=== PATIENT | female | born 1965 | race Caucasian/White ===

== ENCOUNTER 2018-08-14 12:38 | Inpatient (IN) | payer BC, OTHER ==
--- NOTE | 2018-08-14 15:39 | HP ---
Screened but not Admitted - Documentation of Visit Screened but not Admitted: Yes Left Prior to Completion of Assessment: No Insurance Authorization Denied: No Patient Does Not Meet Criteria for Admission: No Level of Care Recommended at this Time: ER Evaluation/Care Alternative Treatment/Nursing Home Info Provided: No Additional Information/Explanation: Pt presents for alcohol detox. VS shows HR to be 122 initially and 132bpm when re-checked hours after. Pt reports "feeling my heart beating real fast, denies chest pains". FS - 39, Bp 154/86. Pt will be sent to ED to r/o cardiac involvement. Report given to Dr Maciel at the ED [facility]. Pt will be sent back when medically cleared for re- admission.
--- NOTE | 2018-08-14 22:46 | HP ---
Admission [facility] Allergies/Adverse Reactions: Allergies Allergy/AdvReac Type Severity Reaction Status Date / Time No Known Allergies Allergy Verified 08/14/18 16:28 - Ebola screening Have you traveled outside of the country in the last 21 days: No (N) Have you had contact with anyone from an Ebola affected area: No Do you have a fever: No
[2018-08-14 22:49] VITALS: BMI 19.5
--- NOTE | 2018-08-14 22:56 | HP ---
CIWA Score - CIWA Score Nausea/Vomitin-Mild Nausea/No Vomiting Muscle Tremors: 7-Severe,w/o Arm Extended Anxiety: 4-Mod. Anxious/Guarded Agitation: 4-Moderately Restless Paroxysmal Sweats: No Perspiration Orientation: 0-Oriented Tacttile Disturbances: 0-None Auditory Disturbances: 0-None Visual Disturbances: 0-None Headache: 2-Mild CIWA-Ar Total Score: 18 Admission [facility] - HPI Chief Complaint: Here for aalcohol withdrawal. Allergies/Adverse Reactions: Allergies Allergy/AdvReac Type Severity Reaction Status Date / Time No Known Allergies Allergy Verified 08/14/18 16:28 History of Present Illness: Patient seen earlier in [facility] and sent to ER for a HR: 132 and Bld Gluc: 309 and now returns from [facility] ER after being evaluated. Emergency Provider: Mahsa De Leon Date: 08/14/18 19:52 Initialization Date: 08/14/18 19:52 Attending Attestation HPI HPI: 08/14/18 19:52 53 yo F h/o DM, etoh abuse, here with c/o etoh withdrawal, her last drink was today. drinks daily vodka, has tried to stop in the past usually has withdrawal symptoms. mike h/o DT or seizure. no f/c. no n/v. no other complaints. was seen at [facility] for detox, found to be tachycardic, in 130's, and sugar in 300, sent of medical clearance. denies other drug use. - Physicial Exam PE: 08/14/18 19:57 awake alert lungs clear bilaterally heart tachycardic, regular no m/rg abd soft nt nd. ext wwp. nuero alert oriented x 3. resting tremors, skin warm and dry. Medical Decision Making 08/14/18 19:58 differential dehydration, dka, etoh withdrawal, anemia, electrolyte abnormality. plan labs ekg hydration labs will treat etoh withdrawal with benzos. pt labs unremarkable. sugar 260, improved vs with fluids and ativan. d/w [facility], pt cleared to go to [facility] for detox. End of Attending Attestation Alcohol use disorder since age 14. Nicotine l use disorder since age 28. Hx Blackouts. State blackouts are often r/t diabetes but had an alcohol related blackout 2 weeks ago.. Denies hx seizures. PMH: HTN, IDDM. elevated LFT's. PSH: Gastric Sleeve Exam Limitations: No Limitations - Ebola screening Have you traveled outside of the country in the last 21 days: No (N) Have you had contact with anyone from an Ebola affected area: No Have you been sick,other than usual withdrawal symptoms: No Do you have a fever: No - Review of Systems Constitutional: Changes in sleep (Difficulty sleeping when not drinking) EENT: reports: Cataracts ([place] cataracts), Blurred Vision (Wears.), Other Respiratory: reports: Cough (Cough x months. Coughing up whitish phlegm) Cardiac: reports: Other (Tachycardia) GI: reports: Nausea, Indigestion (Acid reflus - protonix), Other (Hx; Gastric sleeve) : reports: No Symptoms Reported Musculoskeletal: reports: No Symptoms Reported Integumentary: reports: No Symptoms Reported, Lesions (Slight scratches r/t gardening) Neuro: reports: Headache (May be r/t seasonal allergies), Tremors (of whole body r/t withdrawal), Unsteady Gait (r/t tremors) Endocrine: reports: No Symptoms Reported Hematology: reports: No Symptoms Reported Psychiatric: reports: Judgement Intact, Orientated x3, Agitated, Anxious, Depressed (On antidepressants. Denies thoughts of harming self or others.) Patient History - Patient Medical History Hx Gastrointestinal Disorders: Yes (Hx Pancreatitis, GERD) Hx Liver Disease: Yes (Elevated Liver enzymes) Hx Sexually Transmitted Disorders: No Hx Depression: Yes (Denies thoughts of harming self or others) - PPD History Previous Implant?: Yes Documented Results: Negative w/o proof Implanted On Prior R Admission?: No PPD to be Administered?: Yes - Smoking Cessation Smoking history: Current every day smoker Have you smoked in the past 12 months: Yes Aproximately how many cigarettes per day: 40 Hx Chewing Tobacco Use: No Initiated information on smoking cessation: Yes 'Breaking Loose' booklet given: 08/14/18 - Substance & Tx. History Hx Alcohol Use: Yes Hx Substance Use: No Substance Use Type: Alcohol Hx Substance Use Treatment: No - Substances Abused Alcohol Route: Oral Frequency: Daily Amount used: 1-2 pints Age of first use: 14 Date of Last Use: 08/13/18 Admission Physical Exam BHS - Vital Signs Vital Signs: Vital Signs - 24 hr 08/14/18 22:47 Temperature 98.6 F Pulse Rate 107 H Respiratory 18 Rate Blood Pressure 144/86 - Physical General Appearance: Yes: Mild Distress, Moderate Distress, Tremorous, Anxious HEENTM: Yes: EOMI, Hearing grossly Normal, Normal Voice, CONOR Respiratory: Yes: Lungs Clear, Normal Breath Sounds, Other (Noisy, non- productive cough) Neck: Yes: No masses,lesions,Nodules, Supple Breast: Yes: Breast Exam Deferred Cardiology: Yes: Regular Rhythm, S1, S2, Tachycardia Abdominal: Yes: Normal Bowel Sounds, Non Tender, Soft Genitourinary: Yes: Within Normal Limits Back: Yes: Normal Inspection Musculoskeletal: Yes: full range of Motion, Other (Gait unsteady) Extremities: Yes: Normal Capillary Refill, Normal Range of Motion, Tremors ( tremors of arms and legs) Neurological: Yes: maintenance repairman II-XII NML intact, Fully Oriented, Alert, Motor Strength 5/5, Normal Mood/Affect Integumentary: Yes: Normal Color, Dry (poor turgor), Warm Lymphatic: Yes: Within Normal Limits - Diagnostic (1) Diabetes Current Visit: Yes Status: Acute Qualifiers: Diabetes mellitus type: type 2 Diabetes mellitus halfway insulin use: unspecified halfway insulin use status Diabetes mellitus complication status : with hyperglycemia Qualified Code(s): E11.65 - Type 2 diabetes mellitus with hyperglycemia (2) Alcohol withdrawal Current Visit: Yes Status: Acute Qualifiers: Complication of substance-induced condition: with unspecified complication Qualified Code(s): F10.239 - Alcohol dependence with withdrawal, unspecified (3) Tachycardia Current Visit: Yes Status: Acute (4) Dehydration Current Visit: Yes Status: Acute (5) Bariatric surgery status Current Visit: No Status: Chronic Cleared for Admission [facility] - Detox or Rehab [facility] Level of Care: Medically Managed Detox Regimen/Protocol: Valium S Breath Alcohol Content Breath Alcohol Content: 0 Urine Pregancy Test - Result Urine Test Results: Negative- NO Line Present Urine Drug Screen - Results Drug Screen Negative: Yes
[2018-08-14] MEDS ORDERED: NICOTINE POLACRILEX 4 MG GUM BUC PRN (23:20)
[2018-08-14] MEDS ORDERED: LOPERAMIDE HCL 2 MG CAPSULE PO PRN (23:20)
[2018-08-14] MEDS ORDERED: MENTHOL/PHENOL 1 EACH UD MM PRN (23:20)
[2018-08-14] MEDS ORDERED: MAGNESIUM HYDROX 2400MG/30ML ORAL SUSPENSION 30 ML CUP PO PRN (23:20)
[2018-08-14] MEDS ORDERED: IBUPROFEN 400 MG TABLET (FP) PO PRN (23:20)
[2018-08-14] MEDS ORDERED: MAG HYDROX/AL HYDROX/SIMETH 30 ML UNIT-DOSE CUP PO PRN (23:20)
[2018-08-14] MEDS ORDERED: MAGNESIUM CITRATE 300 ML BOTTLE PO PRN (23:20)
[2018-08-14] MEDS ORDERED: diazePAM 5 MG TABLET PO ONE (23:20)
[2018-08-14] MEDS ORDERED: ACETAMINOPHEN 325 MG TABLET (FP) PO PRN (23:20)
[2018-08-14] MEDS ORDERED: hydrOXYzine PAMOATE 25 MG CAPSULE (FP) PO PRN (23:20)
[2018-08-14] MEDS ORDERED: P-EPHED 60MG/TRIPROLIDI 2.5MG TABLET PO PRN (23:20)
[2018-08-14] MEDS ORDERED: guaiFENesin 200 MG/10 ML 10 ML UNIT-DOSE CUPS PO PRN (23:24)
[2018-08-15] MEDS: diazePAM 5 MG TABLET PO SCH ×6 (00:54→22:58)
[2018-08-15] MEDS: GLIMEPIRIDE 4 MG TABLET (FP) PO SCH (07:52)
--- NOTE | 2018-08-15 09:31 | CONSULT ---
[facility] Psychiatric Consult - Data Date of interview: 08/15/18 Admission source: Mother Identifying data: Ms Layton is a 53 years old female, employed as scrum project manager of [employer], domiciled seeking detox treatment for alcohol Substance Abuse History: Reports history of alcohol use. Refer to addiction counselor's summary for further information Medical History: Significant for hypertension, type 2 diabetes mellitus,GERD, increase LFT"S and history of panceatitis and surgery for gastric sleeve. Smokes cigarettes 2 ppd Psychiatric History: Reports that she started taking Lexapro 10 mg po daily last month prescribed by her primary care physician for depression. Reports that she expressed feeling lonely to her physician. Denies history of psychiatric hospitalization or suicidal attempt. At present, reports feeling well but sleeping poorly Physical/Sexual Abuse/Trauma History: Denies history of emotional, physical or sexual abuse as well as DV relationship. No service Additional Comment: Denies criminal history Mental Status Exam - Mental Status Exam Alert and Oriented to: Time, Place, Person Cognitive Function: Fair Patient Appearance: Well Groomed Mood: Hopeful, Euthymic Affect: Appropriate Patient Behavior: Cooperative Speech Pattern: Clear Voice Loudness: Normal Thought Process: Intact, Goal Oriented Thought Disorder: Not Present Hallucinations: Denies Suicidal Ideation: Denies Homicidal Ideation: Denies Insight/Judgement: Fair Sleep: Poorly Appetite: Fair Muscle strength/Tone: Normal Gait/Station: Normal Psychiatric Findings - Problem List ([place] 1, 2,3) (1) Alcohol-induced mood disorder Current Visit: Yes Status: Acute (2) Alcohol-induced sleep disorder Current Visit: Yes Status: Acute (3) Alcohol dependence with uncomplicated withdrawal Current Visit: Yes Status: Acute (4) Nicotine dependence Current Visit: Yes Status: Chronic (5) HTN (hypertension) Current Visit: Yes Status: Chronic (6) Type 2 diabetes mellitus Current Visit: Yes Status: Chronic (7) Pancreatitis, chronic Current Visit: Yes Status: Chronic (8) GERD (gastroesophageal reflux disease) Current Visit: Yes Status: Chronic - Initial Treatment Plan Initial Treatment Plan: 1) Continue Lexapro 10 mg po daily. 2) Start Melatonin 5 mg po HS prn for insomnia. 3) Continue inpatient detoxification
[2018-08-15] MEDS ORDERED: [UNRECOGNIZED DRUG - OTHER] PO SCH (10:00)
[2018-08-15] MEDS ORDERED: SAXAGLIPTIN HCL PO SCH (10:00)
[2018-08-15] MEDS ORDERED: METFORMIN HCL PO SCH (10:00)
[2018-08-15] MEDS: INSULIN DEGLUDEC SQ SCH (10:00)
[2018-08-15 10:39] LABS: HEMATOCRIT 34.3 % (32.4-45.2); HEMOGLOBIN 11.2 GM/dL (10.7-15.3); MCH 34.2 pg (25.7-33.7); MCHC 32.6 g/dl (32.0-36.0); MEAN CELL VOLUME 104.9 fl (80-96); PLATELET COUNT 43 K/MM3 (134-434); RBC 3.27 M/mm3 (3.60-5.2); RDW 18.2 % (11.6-15.6); WHITE BLOOD COUNT 4.2 K/mm3 (4.0-10.0)
[2018-08-15] MEDS: PRENATAL VITAMINS W/ FOLIC ACID TABLET (FP) PO SCH (10:42)
[2018-08-15] MEDS: PANTOPRAZOLE 40 MG TABLET (FP) PO SCH (10:43)
[2018-08-15] MEDS: FOLIC ACID 1 MG TABLET (FP) PO SCH (10:43)
[2018-08-15] MEDS: diazePAM 5 MG TABLET PO PRN ×3 (10:44→22:55)
[2018-08-15] MEDS: NICOTINE 21 MG/24 HOURS TOPICAL PATCH TD SCH (10:44)
[2018-08-15 11:37] LABS: ALK PHOS 160 U/L (45-117); ANION GAP 8 MMOL/L (8-16); BILIRUBIN,TOTAL 0.7 mg/dL (0.2-1); BLOOD UREA NITROGEN 7 mg/dL (7-18); CALCIUM 8.6 mg/dL (8.5-10.1); CHLORIDE 98 mmol/L (98-107); CO2 31 mmol/L (21-32); CREATININE 0.6 mg/dL (0.55-1.3); GLUCOSE,RANDOM 66 mg/dL (74-106); POTASSIUM 3.5 mmol/L (3.5-5.1); SGOT/AST 87 U/L (15-37); SGPT/ALT 58 U/L (13-61); SODIUM 138 mmol/L (136-145)
--- NOTE | 2018-08-15 16:30 | PN ---
[facility] CIWA - CIWA Score Nausea/Vomitin-Mild Nausea/No Vomiting Muscle Tremors: 4-Moderate,w/Arms Extend Anxiety: 4-Mod. Anxious/Guarded Agitation: 4-Moderately Restless Paroxysmal Sweats: 1-Minimal Palms Moist Orientation: 0-Oriented Tacttile Disturbances: 1-Very Mild Itch/Numbness Auditory Disturbances: 0-None Visual Disturbances: 0-None Headache: 1-Very Mild CIWA-Ar Total Score: 16 BHS Progress Note (SOAP) Subjective: sweat tremor restlessness anxiety Objective: 08/15/18 16:29 Vital Signs Temperature 98.1 F 08/15/18 15:34 Pulse Rate 106 H 08/15/18 15:34 Respiratory Rate 18 08/15/18 15:34 Blood Pressure 138/93 08/15/18 15:34 O2 Sat by Pulse Oximetry (%) Laboratory Last Values WBC 4.2 K/mm3 (4.0-10.0) 08/15/18 07:40 RBC 3.27 M/mm3 (3.60-5.2) L 08/15/18 07:40 Hgb 11.2 GM/dL (10.7-15.3) 08/15/18 07:40 Hct 34.3 % (32.4-45.2) 08/15/18 07:40 MCV 104.9 fl (80-96) H 08/15/18 07:40 MCH 34.2 pg (25.7-33.7) H 08/15/18 07:40 MCHC 32.6 g/dl (32.0-36.0) 08/15/18 07:40 RDW 18.2 % (11.6-15.6) H 08/15/18 07:40 Plt Count 43 K/MM3 (134-434) L D 08/15/18 07:40 MPV 8.0 fl (7.5-11.1) 08/15/18 07:40 Sodium 138 mmol/L (136-145) 08/15/18 07:40 Potassium 3.5 mmol/L (3.5-5.1) 08/15/18 07:40 Chloride 98 mmol/L (98-107) 08/15/18 07:40 Carbon Dioxide 31 mmol/L (21-32) 08/15/18 07:40 Anion Gap 8 MMOL/L (8-16) 08/15/18 07:40 BUN 7 mg/dL (7-18) 08/15/18 07:40 Creatinine 0.6 mg/dL (0.55-1.3) 08/15/18 07:40 Creat Clearance w eGFR > 60 (>60) 08/15/18 07:40 POC Glucometer 104 UNITS (80-120) 08/15/18 05:47 Random Glucose 66 mg/dL (74-106) L 08/15/18 07:40 Calcium 8.6 mg/dL (8.5-10.1) 08/15/18 07:40 Total Bilirubin 0.7 mg/dL (0.2-1) 08/15/18 07:40 AST 87 U/L (15-37) H 08/15/18 07:40 ALT 58 U/L (13-61) 08/15/18 07:40 Alkaline Phosphatase 160 U/L (45-117) H 08/15/18 07:40 Total Protein 7.0 g/dl (6.4-8.2) 08/15/18 07:40 Albumin 3.0 g/dl (3.4-5.0) L 08/15/18 07:40 RPR Titer Nonreactive (NONREACTIVE) 08/15/18 07:40 lab noted Assessment: 08/15/18 16:29 withdrawal sx Plan: continue detox
[2018-08-15] MEDS: ESCITALOPRAM OXALATE 10 MG TABLET (FP) PO SCH (17:25)
[2018-08-15] MEDS: THIAMINE HCL 100 MG TABLET (FP) PO SCH (22:55)
[2018-08-16] MEDS: diazePAM 5 MG TABLET PO PRN (05:34)
[2018-08-16] MEDS: GLIMEPIRIDE 4 MG TABLET (FP) PO SCH (09:10)
[2018-08-16] MEDS: FOLIC ACID 1 MG TABLET (FP) PO SCH (10:38)
[2018-08-16] MEDS: PANTOPRAZOLE 40 MG TABLET (FP) PO SCH (10:38)
[2018-08-16] MEDS: PRENATAL VITAMINS W/ FOLIC ACID TABLET (FP) PO SCH (10:38)
[2018-08-16] MEDS: ESCITALOPRAM OXALATE 10 MG TABLET (FP) PO SCH (10:38)
[2018-08-16] MEDS: NICOTINE 21 MG/24 HOURS TOPICAL PATCH TD SCH (10:38)
[2018-08-16] MEDS: INSULIN DEGLUDEC SQ SCH (11:00)
[2018-08-16 11:39] LABS: URINE APPEARANCE CLEAR; URINE BILIRUBIN NEGATIVE (<2.0 mg/dL); URINE COLOR LTYELLOW; URINE GLUCOSE (UA) 3+ (NEGATIVE); URINE KETONE TRACE (NEGATIVE); URINE LEUK ESTERASE NEGATIVE (NEGATIVE); URINE NITRITE NEGATIVE (NEGATIVE); URINE PROTEIN 2+ (NEGATIVE); URINE UROBILINOGEN NEGATIVE mg/dL (0.2-1.0)
[2018-08-16 11:41] LABS: EPI CELLS RARE /HPF (FEW); YEAST FEW
--- NOTE | 2018-08-16 12:35 | PN ---
[facility] CIWA - CIWA Score Nausea/Vomitin-No Nausea/No Vomiting Muscle Tremors: 3 Anxiety: 3 Agitation: 2 Paroxysmal Sweats: 1-Minimal Palms Moist Orientation: 0-Oriented Tacttile Disturbances: 1-Very Mild Itch/Numbness Auditory Disturbances: 0-None Visual Disturbances: 0-None Headache: 1-Very Mild CIWA-Ar Total Score: 11 S Progress Note (SOAP) Subjective: sweat tremor restlessness anxiety trouble sleep at night Objective: 08/16/18 12:44 Vital Signs Temperature 98.1 F 08/16/18 09:15 Pulse Rate 116 H 08/16/18 09:15 Respiratory Rate 16 08/16/18 09:15 Blood Pressure 142/89 08/16/18 09:15 O2 Sat by Pulse Oximetry (%) Laboratory Last Values WBC 4.2 K/mm3 (4.0-10.0) 08/15/18 07:40 RBC 3.27 M/mm3 (3.60-5.2) L 08/15/18 07:40 Hgb 11.2 GM/dL (10.7-15.3) 08/15/18 07:40 Hct 34.3 % (32.4-45.2) 08/15/18 07:40 MCV 104.9 fl (80-96) H 08/15/18 07:40 MCH 34.2 pg (25.7-33.7) H 08/15/18 07:40 MCHC 32.6 g/dl (32.0-36.0) 08/15/18 07:40 RDW 18.2 % (11.6-15.6) H 08/15/18 07:40 Plt Count 43 K/MM3 (134-434) L D 08/15/18 07:40 MPV 8.0 fl (7.5-11.1) 08/15/18 07:40 Sodium 138 mmol/L (136-145) 08/15/18 07:40 Potassium 3.5 mmol/L (3.5-5.1) 08/15/18 07:40 Chloride 98 mmol/L (98-107) 08/15/18 07:40 Carbon Dioxide 31 mmol/L (21-32) 08/15/18 07:40 Anion Gap 8 MMOL/L (8-16) 08/15/18 07:40 BUN 7 mg/dL (7-18) 08/15/18 07:40 Creatinine 0.6 mg/dL (0.55-1.3) 08/15/18 07:40 Creat Clearance w eGFR > 60 (>60) 08/15/18 07:40 POC Glucometer 385 UNITS (80-120) 08/16/18 05:30 Random Glucose 66 mg/dL (74-106) L 08/15/18 07:40 Calcium 8.6 mg/dL (8.5-10.1) 08/15/18 07:40 Total Bilirubin 0.7 mg/dL (0.2-1) 08/15/18 07:40 AST 87 U/L (15-37) H 08/15/18 07:40 ALT 58 U/L (13-61) 08/15/18 07:40 Alkaline Phosphatase 160 U/L (45-117) H 08/15/18 07:40 Total Protein 7.0 g/dl (6.4-8.2) 08/15/18 07:40 Albumin 3.0 g/dl (3.4-5.0) L 08/15/18 07:40 Urine Color Ltyellow 08/16/18 07:30 Urine Appearance Clear 08/16/18 07:30 Urine pH 7.0 (5.0-8.0) 08/16/18 07:30 Ur Specific [place] 1.018 (1.010-1.035) 08/16/18 07:30 Urine Protein 2+ (NEGATIVE) H 08/16/18 07:30 Urine Glucose (UA) 3+ (NEGATIVE) H 08/16/18 07:30 Urine Ketones Trace (NEGATIVE) H 08/16/18 07:30 Urine Blood 1+ (NEGATIVE) H 08/16/18 07:30 Urine Nitrite Negative (NEGATIVE) 08/16/18 07:30 Urine Bilirubin Negative (<2.0 mg/dL) 08/16/18 07:30 Urine Urobilinogen Negative mg/dL (0.2-1.0) 08/16/18 07:30 Ur Leukocyte Esterase Negative (NEGATIVE) 08/16/18 07:30 Urine WBC (Auto) 5 /hpf (3-5) 08/16/18 07:30 Urine RBC (Auto) 5 /hpf (0-3) 08/16/18 07:30 Ur Epithelial Cells Rare /HPF (FEW) 08/16/18 07:30 Urine Yeast Few 08/16/18 07:30 RPR Titer Nonreactive (NONREACTIVE) 08/15/18 07:40 lab noted Assessment: 08/16/18 12:45 withdrawal sx Plan: continue detox
[2018-08-16] MEDS: MELATONIN 5 MG TABLETS PO PRN (22:13)
[2018-08-16] MEDS: THIAMINE HCL 100 MG TABLET (FP) PO SCH (22:13)
[2018-08-16] MEDS: diazePAM 5 MG TABLET PO SCH (22:13)
[2018-08-17] MEDS: GLIMEPIRIDE 4 MG TABLET (FP) PO SCH (07:36)
[2018-08-17] MEDS: sitaGLIPtin PHOSPHATE 100 MG TABLET (FP) PO SCH (08:00)
[2018-08-17] MEDS ORDERED: PATIENT'S OWN MEDICATION (NON-FORMULARY) (Insulin Degludec [Tresiba Flextouch U-100] 100 U SQ ONE (09:15)
[2018-08-17] MEDS ORDERED: INSULIN DEGLUDEC SQ ONE (09:15)
[2018-08-17] MEDS: PANTOPRAZOLE 40 MG TABLET (FP) PO SCH (09:59)
[2018-08-17] MEDS: PRENATAL VITAMINS W/ FOLIC ACID TABLET (FP) PO SCH (09:59)
[2018-08-17] MEDS: FOLIC ACID 1 MG TABLET (FP) PO SCH (09:59)
[2018-08-17] MEDS: ESCITALOPRAM OXALATE 10 MG TABLET (FP) PO SCH (10:00)
[2018-08-17] MEDS: NICOTINE 21 MG/24 HOURS TOPICAL PATCH TD SCH (10:00)
[2018-08-17] MEDS: diazePAM 5 MG TABLET PO SCH ×2 (10:01→22:11)
--- NOTE | 2018-08-17 10:43 | PN ---
[facility] Progress Note (SOAP) Subjective: feeling better no tremor less sweat sleep better at night Objective: 08/17/18 10:42 Vital Signs Temperature 97.9 F 08/17/18 09:33 Pulse Rate 96 H 08/17/18 09:33 Respiratory Rate 18 08/17/18 09:33 Blood Pressure 134/97 08/17/18 09:33 O2 Sat by Pulse Oximetry (%) Laboratory Last Values WBC 4.2 K/mm3 (4.0-10.0) 08/15/18 07:40 RBC 3.27 M/mm3 (3.60-5.2) L 08/15/18 07:40 Hgb 11.2 GM/dL (10.7-15.3) 08/15/18 07:40 Hct 34.3 % (32.4-45.2) 08/15/18 07:40 MCV 104.9 fl (80-96) H 08/15/18 07:40 MCH 34.2 pg (25.7-33.7) H 08/15/18 07:40 MCHC 32.6 g/dl (32.0-36.0) 08/15/18 07:40 RDW 18.2 % (11.6-15.6) H 08/15/18 07:40 Plt Count 43 K/MM3 (134-434) L D 08/15/18 07:40 MPV 8.0 fl (7.5-11.1) 08/15/18 07:40 Sodium 138 mmol/L (136-145) 08/15/18 07:40 Potassium 3.5 mmol/L (3.5-5.1) 08/15/18 07:40 Chloride 98 mmol/L (98-107) 08/15/18 07:40 Carbon Dioxide 31 mmol/L (21-32) 08/15/18 07:40 Anion Gap 8 MMOL/L (8-16) 08/15/18 07:40 BUN 7 mg/dL (7-18) 08/15/18 07:40 Creatinine 0.6 mg/dL (0.55-1.3) 08/15/18 07:40 Creat Clearance w eGFR > 60 (>60) 08/15/18 07:40 POC Glucometer 365 UNITS (80-120) 08/17/18 05:53 Random Glucose 66 mg/dL (74-106) L 08/15/18 07:40 Calcium 8.6 mg/dL (8.5-10.1) 08/15/18 07:40 Total Bilirubin 0.7 mg/dL (0.2-1) 08/15/18 07:40 AST 87 U/L (15-37) H 08/15/18 07:40 ALT 58 U/L (13-61) 08/15/18 07:40 Alkaline Phosphatase 160 U/L (45-117) H 08/15/18 07:40 Total Protein 7.0 g/dl (6.4-8.2) 08/15/18 07:40 Albumin 3.0 g/dl (3.4-5.0) L 08/15/18 07:40 Urine Color Ltyellow 08/16/18 07:30 Urine Appearance Clear 08/16/18 07:30 Urine pH 7.0 (5.0-8.0) 08/16/18 07:30 Ur Specific [place] 1.018 (1.010-1.035) 08/16/18 07:30 Urine Protein 2+ (NEGATIVE) H 08/16/18 07:30 Urine Glucose (UA) 3+ (NEGATIVE) H 08/16/18 07:30 Urine Ketones Trace (NEGATIVE) H 08/16/18 07:30 Urine Blood 1+ (NEGATIVE) H 08/16/18 07:30 Urine Nitrite Negative (NEGATIVE) 08/16/18 07:30 Urine Bilirubin Negative (<2.0 mg/dL) 08/16/18 07:30 Urine Urobilinogen Negative mg/dL (0.2-1.0) 08/16/18 07:30 Ur Leukocyte Esterase Negative (NEGATIVE) 08/16/18 07:30 Urine WBC (Auto) 5 /hpf (3-5) 08/16/18 07:30 Urine RBC (Auto) 5 /hpf (0-3) 08/16/18 07:30 Ur Epithelial Cells Rare /HPF (FEW) 08/16/18 07:30 Urine Yeast Few 08/16/18 07:30 RPR Titer Nonreactive (NONREACTIVE) 08/15/18 07:40 lab noted Assessment: 08/17/18 10:43 mild withdrawal sx Plan: medically supervised detox
[2018-08-17 14:24] VITALS: TEMP 97.7
[2018-08-17] MEDS: MELATONIN 5 MG TABLETS PO PRN (22:11)
[2018-08-17] MEDS: THIAMINE HCL 100 MG TABLET (FP) PO SCH (22:11)
[2018-08-18] MEDS: GLIMEPIRIDE 4 MG TABLET (FP) PO SCH (06:12)
[2018-08-18] MEDS: sitaGLIPtin PHOSPHATE 100 MG TABLET (FP) PO SCH (06:14)
[2018-08-18 07:00] VITALS: BP 132/89; PULSE 62
[2018-08-18] MEDS ORDERED: PATIENT'S OWN MEDICATION (NON-FORMULARY) (Insulin Degludec [Tresiba Flextouch U-100] 100 U SQ SCH (07:00)
[2018-08-18] MEDS ORDERED: INSULIN DEGLUDEC SQ SCH ×2 (07:00)
--- NOTE | 2018-08-18 08:32 | DS ---
[facility] Detox Discharge Summary Admission Date: 08/14/18 Discharge Date: 08/18/18 - History Present History: Alcohol Dependence Additional Comments: 53 years old female admitted on 08/14/18 for alcohol withdrawal sx completed alcohol detox regimen tolerated well patient left the detox unit around 0723 I have not assess nor evaluate the patient before discharged to the community - Physical Exam Results Vital Signs: Vital Signs Temperature 97.7 F 08/18/18 07:00 Pulse Rate 62 08/18/18 07:00 Respiratory Rate 18 08/18/18 07:00 Blood Pressure 132/89 08/18/18 07:00 O2 Sat by Pulse Oximetry (%) Pertinent Admission Physical Exam Findings: alcohol withdrawal sx Vital Signs Temperature 97.7 F 08/18/18 07:00 Pulse Rate 62 08/18/18 07:00 Respiratory Rate 18 08/18/18 07:00 Blood Pressure 132/89 08/18/18 07:00 O2 Sat by Pulse Oximetry (%) Laboratory Last Values WBC 4.2 K/mm3 (4.0-10.0) 08/15/18 07:40 RBC 3.27 M/mm3 (3.60-5.2) L 08/15/18 07:40 Hgb 11.2 GM/dL (10.7-15.3) 08/15/18 07:40 Hct 34.3 % (32.4-45.2) 08/15/18 07:40 MCV 104.9 fl (80-96) H 08/15/18 07:40 MCH 34.2 pg (25.7-33.7) H 08/15/18 07:40 MCHC 32.6 g/dl (32.0-36.0) 08/15/18 07:40 RDW 18.2 % (11.6-15.6) H 08/15/18 07:40 Plt Count 43 K/MM3 (134-434) L D 08/15/18 07:40 MPV 8.0 fl (7.5-11.1) 08/15/18 07:40 Sodium 138 mmol/L (136-145) 08/15/18 07:40 Potassium 3.5 mmol/L (3.5-5.1) 08/15/18 07:40 Chloride 98 mmol/L (98-107) 08/15/18 07:40 Carbon Dioxide 31 mmol/L (21-32) 08/15/18 07:40 Anion Gap 8 MMOL/L (8-16) 08/15/18 07:40 BUN 7 mg/dL (7-18) 08/15/18 07:40 Creatinine 0.6 mg/dL (0.55-1.3) 08/15/18 07:40 Creat Clearance w eGFR > 60 (>60) 08/15/18 07:40 POC Glucometer 243 UNITS (80-120) 08/18/18 06:10 Random Glucose 66 mg/dL (74-106) L 08/15/18 07:40 Calcium 8.6 mg/dL (8.5-10.1) 08/15/18 07:40 Total Bilirubin 0.7 mg/dL (0.2-1) 08/15/18 07:40 AST 87 U/L (15-37) H 08/15/18 07:40 ALT 58 U/L (13-61) 08/15/18 07:40 Alkaline Phosphatase 160 U/L (45-117) H 08/15/18 07:40 Total Protein 7.0 g/dl (6.4-8.2) 08/15/18 07:40 Albumin 3.0 g/dl (3.4-5.0) L 08/15/18 07:40 Urine Color Ltyellow 08/16/18 07:30 Urine Appearance Clear 08/16/18 07:30 Urine pH 7.0 (5.0-8.0) 08/16/18 07:30 Ur Specific [place] 1.018 (1.010-1.035) 08/16/18 07:30 Urine Protein 2+ (NEGATIVE) H 08/16/18 07:30 Urine Glucose (UA) 3+ (NEGATIVE) H 08/16/18 07:30 Urine Ketones Trace (NEGATIVE) H 08/16/18 07:30 Urine Blood 1+ (NEGATIVE) H 08/16/18 07:30 Urine Nitrite Negative (NEGATIVE) 08/16/18 07:30 Urine Bilirubin Negative (<2.0 mg/dL) 08/16/18 07:30 Urine Urobilinogen Negative mg/dL (0.2-1.0) 08/16/18 07:30 Ur Leukocyte Esterase Negative (NEGATIVE) 08/16/18 07:30 Urine WBC (Auto) 5 /hpf (3-5) 08/16/18 07:30 Urine RBC (Auto) 5 /hpf (0-3) 08/16/18 07:30 Ur Epithelial Cells Rare /HPF (FEW) 08/16/18 07:30 Urine Yeast Few 08/16/18 07:30 RPR Titer Nonreactive (NONREACTIVE) 08/15/18 07:40 lab noted [facility] mental and addiction issues - Treatment Hospital Course: Detox Protocol Followed, Detoxed Safely, Responded well, Discharged Condition Good, Rehab Referral Accepted Patient has Accepted a Rehab Referral to: [facility] - Medication Discharge Medications: Ambulatory Orders Folic Acid 1 mg PO DAILY 08/14/18 Pantoprazole Sodium [Protonix] 40 mg PO DAILY 08/14/18 Propylene Glycol/Peg 400 [Systane 0.3-0.4% Eye Drops] 30 ml OP DAILY 08/14/18 Saxagliptin HCl/Metformin HCl [Kombiglyze Xr 5-500 mg Tablet] 1 tab PO DAILY 04/26 Escitalopram Oxalate [Lexapro -] 10 mg PO DAILY #30 tablet 08/15/18 Glimepiride 4 mg PO DAILY #30 tablet 08/17/18 Insulin Degludec [Tresiba Flextouch U-100] 10 unit SQ DAILY@0700 #1 insuln.pen 08/17/18 Insulin Degludec [Tresiba Flextouch U-100] 100 unit SQ ONCE 08/17/18 - Diagnosis (1) Alcohol withdrawal Current Visit: Yes Status: Acute Qualifiers: Complication of substance-induced condition: with unspecified complication Qualified Code(s): F10.239 - Alcohol dependence with withdrawal, unspecified (2) Diabetes Current Visit: Yes Status: Chronic Qualifiers: Diabetes mellitus type: type 2 Diabetes mellitus oysterman insulin use: unspecified oysterman insulin use status Diabetes mellitus complication status : with hyperglycemia Qualified Code(s): E11.65 - Type 2 diabetes mellitus with hyperglycemia (3) Bariatric surgery status Current Visit: No Status: Resolved (4) Nicotine dependence Current Visit: Yes Status: Acute Qualifiers: Nicotine product type: cigarettes Substance use status: in withdrawal Qualified Code(s): F17.213 - Nicotine dependence, cigarettes, with withdrawal (5) GERD (gastroesophageal reflux disease) Current Visit: Yes Status: Chronic Qualifiers: Esophagitis presence: without esophagitis Qualified Code(s): K21.9 - Gastro -esophageal reflux disease without esophagitis - AMA Did Patient Leave Against Medical Advice: No
[2018-08-18] MEDS ORDERED: diazePAM 5 MG TABLET PO SCH (10:00)
== END 2018-08-18 07:25 | disposition home or self-care (01) | DRG 897 ==
LOC: YASAS 12:38 → Y6N 23:20
PROC: HZ2ZZZZ Detoxification Services for Substance Abuse Treatment (ICD-10-PCS; principal; 2018-08-14)
DX: F10.230 Alcohol dependence with withdrawal, uncomplicated (principal); F10.24 Alcohol dependence with alcohol-induced mood disorder; F10.282 Alcohol dependence with alcohol-induced sleep disorder; F17.213 Nicotine dependence, cigarettes, with withdrawal; I10 Essential (primary) hypertension; E11.65 Type 2 diabetes mellitus with hyperglycemia; R00.0 Tachycardia, unspecified; E86.0 Dehydration; K21.9 Gastro-esophageal reflux disease without esophagitis; Z98.84 Bariatric surgery status; Z79.4 Long term (current) use of insulin
CPT/HCPCS: 36415; 80053; 81003; 81015; 82962; 85027; 86593

== ENCOUNTER 2018-08-14 16:05 | Emergency (ER) | payer BC ==
[2018-08-14 16:29] VITALS: BMI 17.6
--- NOTE | 2018-08-14 16:34 | PDOC ---
History of Present Illness - General Stated Complaint: HTN, WITHDRAWL Time Seen by Provider: 08/14/18 16:12 History Source: Patient Exam Limitations: No Limitations - History of Present Illness Initial Comments: 53 y/o F with PMH of alcohol abuse, HTN, IDDM, pancreatitis, elevated LFTs presents to the ER from [facility] for tachycardia. She initially went to [facility] for alcohol detox. She has been drinking 4 drinks/day (liquor w/approx 1 shot of alcohol per drink) and her last drink was approximately 1 shot of courvoisier this morning. She felt like her heart was racing at [facility] and was noted to have a HR of 122 initially which increased to 132 bpm (FS - 309, BP 154/86) and was sent to [facility] ER for further evaluation. She c/o nausea and had 1 episode of non-bloody vomiting this AM. She's been having diarrhea on and off for the last few weeks and is associated with her alcohol use. She also c/o increased frequency in urination at this time. She denies fevers, chills, abd pain, CP, chest pressure, palpitations, SOB, dysuria, blood in urine, blood in stool, LE edema, falls, LOC. She has never had seizures, hallucinations, or DTs, bloody vomit. She has a chronic cough which is unchanged at this time. PMH: alcohol abuse, HTN, IDDM, pancreatitis, elevated LFTs PSHx: Gastric sleeve 3 years ago SH: Smokes 2 ppd; alcohol: 4 drinks/day; denies any drug use. Works in [employer]. Lives alone. FH: DM, thyroid issues, multiple cancers Allergies: Says she cannot tolerate librium as it makes her altered for a very long time. Past History - Past Medical History Allergies/Adverse Reactions: Allergies Allergy/AdvReac Type Severity Reaction Status Date / Time No Known Allergies Allergy Verified 08/14/18 16:28 Home Medications: Ambulatory Orders NK [No Known Home Medication] 08/14/18 COPD: No CHF: No Diabetes: Yes HTN: Yes - Surgical History GI Surgery: Yes (Gastric Sleeve 3 years ago) - Immunization History Immunization Up to Date: Yes - Suicide/Smoking/Psychosocial Hx Smoking History: Current every day smoker (2 ppd) Have you smoked in the past 12 months: Yes Information on smoking cessation initiated: No Hx Alcohol Use: Yes (withdrawal) Drug/Substance Use Hx: No Review of Systems - Review of Systems Able to Perform ROS?: Yes Constitutional: No: Chills, Fever Respiratory: Yes: Cough (chronic cough), Productive cough (clear sputum, chronic ). No: Shortness of Breath, Hemoptysis Cardiac (ROS): Yes: Lightheadedness, Other ("heart racing"). No: Chest Pain, Palpitations ABD/GI: Yes: Diarrhea, Nausea, Vomiting, Other (no abd pain). No: Blood Streaked Bowels, Tarry Stools : Yes: Frequency. No: Burning, Dysuria, Hematuria Neurological: Yes: Tremors, Dizziness. No: Seizure *Physical Exam - Vital Signs Last Vital Signs Temp Pulse Resp BP Pulse Ox 97.1 F L 110 H 20 139/88 99 08/14/18 16:22 08/14/18 16:22 08/14/18 16:22 08/14/18 16:22 08/14/18 16:22 - Physical Exam General Appearance: Yes: Appropriately Dressed, Thin. No: Apparent Distress, Intoxicated HEENT: positive: EOMI, Normal Voice. negative: Scleral Icterus (R), Scleral Icterus (L) Neck: positive: Supple Respiratory/Chest: positive: Lungs Clear, Wheezing (mild wheezing). negative: Crackles, Rhonchi Cardiovascular: positive: Regular Rhythm, S1, S2, Tachycardia. negative: Murmur Gastrointestinal/Abdominal: positive: Normal Bowel Sounds, Soft. negative: Tender Integumentary: negative: Jaundice Neurologic: positive: benefits analyst II-XII NML intact, Fully Oriented, Alert, Other (no flapping tremor). negative: Confused, Disoriented ED Treatment Course - LABORATORY CBC & Chemistry Diagram: 08/14/18 16:37 08/14/18 16:37 Medical Decision Making - Medical Decision Making 08/14/18 16:50 Pt with tachycardia and mild tremors with alcohol withdrawal. Pt also nauseous. Will check CBC, CMP, Mg, Phos, lipase, Trops, UA, EKG. Will give ativan 1mg IV. Will give zofran 4 mg IV. Started on banana bag. 08/14/18 17:12 EKG shows sinus tachycardia @ 109 bpm. QTc 474 ms. 08/14/18 17:27 CBC wnl, CMP significant for low Mg & elevated LFTs. Currently receiving banana bag. No abd pain noted by patient at this time either. Awaiting trops 08/14/18 17:45 Pt feels better after getting ativan and zofran. She would like a nicotine patch to help with nicotine craving. Nicotine 21 mg patch ordered 08/14/18 17:51 Trops negative. Pt continues to feel better than at initial presentation. Heart doesn't feel like it's racing at this time. Pt still has banana bag infusing at this time. Will recheck vitals once fluids are done. HR at this time is 96 bpm. 08/14/18 18:32 Pt continues to feel better. Repeat VS: BP 136/95, HR 86, 97% O2 sat on RA Pt to be transferred back to [facility] for alcohol detox 08/14/18 19:07 Spoke with DAYAN Hadley at [facility] and updated on patient's clinical condition. Pt to be transferred to [facility]. 08/14/18 19:12 Pt to be given 1 mg IV ativan before departure as pt has some increasing feelings of withdrawal at this time. *DC/Admit/Observation/Transfer Diagnosis at time of Disposition: Tachycardia, Alcohol withdrawal - Discharge Dispostion Disposition: TRANSFER ACUTE CARE/OTHER HOSP Condition at time of disposition: Fair Decision to Admit order: No - Referrals Referrals: Deny Bryson [Primary Care Provider] - - Patient Instructions Printed Discharge Instructions: DI for Drug or Alcohol Withdrawal - Post Discharge Activity
[2018-08-14] MEDS ORDERED: FOLIC ACID INJECTION - 1 MG, THIAMINE HCL 100 MG, MULTIVIT INJECTION ADULT 10 ML in SOD... IVPB ONE (16:37)
[2018-08-14] MEDS ORDERED: LORazepam 2 MG/ML SDV VIAL ONE ×2 (16:51→19:18)
[2018-08-14 16:53] LABS: URINE APPEARANCE CLEAR; URINE BILIRUBIN NEGATIVE (<2.0 mg/dL); URINE COLOR DKYELLOW; URINE GLUCOSE (UA) 3+ (NEGATIVE); URINE KETONE 1+ (NEGATIVE); URINE LEUK ESTERASE NEGATIVE (NEGATIVE); URINE NITRITE NEGATIVE (NEGATIVE); URINE PROTEIN 3+ (NEGATIVE)
[2018-08-14 16:55] LABS: BASO % 0.9 % (0-2.0); EOS % 0.1 % (0-4.5); HEMATOCRIT 34.1 % (32.4-45.2); HEMOGLOBIN 11.4 GM/dL (10.7-15.3); LYMPH % 18.8 % (8-40); MCH 34.9 pg (25.7-33.7); MCHC 33.5 g/dl (32.0-36.0); MEAN CELL VOLUME 104.2 fl (80-96); MEAN PLT VOLUME 8.4 fl (7.5-11.1); MONO % 5.4 % (3.8-10.2); NEUT % 74.8 % (42.8-82.8); PLATELET COUNT 56 K/MM3 (134-434); RBC 3.27 M/mm3 (3.60-5.2); RDW 18.2 % (11.6-15.6); WHITE BLOOD COUNT 5.3 K/mm3 (4.0-10.0)
[2018-08-14] MEDS ORDERED: ONDANSETRON 4 MG/2 ML VIAL IVPUSH ONE (17:05)
[2018-08-14] MEDS ORDERED: ONDANSETRON 4 MG/2 ML VIAL ONE (17:11)
[2018-08-14 17:25] LABS: ALBUMIN 3.3 g/dl (3.4-5.0); ALK PHOS 180 U/L (45-117); ANION GAP 15 MMOL/L (8-16); BILIRUBIN,TOTAL 0.4 mg/dL (0.2-1); BLOOD UREA NITROGEN 8 mg/dL (7-18); CALCIUM 8.4 mg/dL (8.5-10.1); CHLORIDE 96 mmol/L (98-107); CO2 22 mmol/L (21-32); CREATININE 0.8 mg/dL (0.55-1.3); GLUCOSE,RANDOM 260 mg/dL (74-106); LIPASE 373 U/L (73-393); MAGNESIUM 1.2 mg/dL (1.8-2.4); PHOSPHOROUS 2.8 mg/dL (2.5-4.9); SGOT/AST 100 U/L (15-37); SGPT/ALT 71 U/L (13-61); SODIUM 133 mmol/L (136-145); TOT PROT 7.6 g/dl (6.4-8.2)
[2018-08-14 17:31] LABS: EPI CELLS RARE /HPF (FEW); URINE HYALINE CAST 4 /lpf; URINE MUCUS RARE
[2018-08-14] MEDS ORDERED: NICOTINE 21 MG/24 HOURS TOPICAL PATCH TD ONE (17:45)
[2018-08-14 18:36] VITALS: PULSE 86
[2018-08-14 19:50] VITALS: BP 131/79; TEMP 99.3
--- NOTE | 2018-08-14 19:57 | PDOC ---
Attending Attestation - Resident Resident Name: Denton Schaffer - ED Attending Attestation I have performed the following: I have examined & evaluated the patient, The case was reviewed & discussed with the resident, I agree w/resident's findings & plan, Exceptions are as noted - HPI HPI: 08/14/18 19:52 53 yo F h/o DM, etoh abuse, here with c/o etoh withdrawal, her last drink was today. drinks daily vodka, has tried to stop in the past usually has withdrawal symptoms. mike h/o DT or seizure. no f/c. no n/v. no other complaints. was seen at [facility] for detox, found to be tachycardic, in 130's, and sugar in 300, sent of medical clearance. denies other drug use. - Physicial Exam PE: 08/14/18 19:57 awake alert lungs clear bilaterally heart tachycardic, regular no m/rg abd soft nt nd. ext wwp. nuero alert oriented x 3. resting tremors, skin warm and dry. - Medical Decision Making 08/14/18 19:58 differential dehydration, dka, etoh withdrawal, anemia, electrolyte abnormality. plan labs ekg hydration labs will treat etoh withdrawal with benzos. pt labs unremarkable. sugar 260, improved vs with fluids and ativan. d/w [facility], pt cleared to go to [facility] for detox.
--- NOTE | 2018-08-16 11:08 | EKG ---
Test Reason : Blood Pressure : / mmHG Vent. Rate : 106 BPM Atrial Rate : 106 BPM P-R Int : 152 ms QRS Dur : 076 ms QT Int : 352 ms P-R-T Axes : 070 081 064 degrees QTc Int : 467 ms SINUS TACHYCARDIA POSSIBLE LEFT ATRIAL ENLARGEMENT BORDERLINE ECG NO PREVIOUS ECGS AVAILABLE Confirmed by GAURANG MORRISON, TASHI ([id number]) on 08/16/2018 11:07:51 AM Referred By: Confirmed By:TASHI MERLOS MD
== END 2018-08-14 22:00 | disposition short-term general hospital (02) ==
LOC: JER 16:05
PROC: 3E033GC Introduction of Other Therapeutic Substance into Peripheral Vein, Percutaneous Approach (ICD-10-PCS; principal; 2018-08-14)
PROC: 3E033GC Introduction of Other Therapeutic Substance into Peripheral Vein, Percutaneous Approach (ICD-10-PCS; 2018-08-14)
PROC: 3E033NZ Introduction of Analgesics, Hypnotics, Sedatives into Peripheral Vein, Percutaneous Approach (ICD-10-PCS; 2018-08-14)
PROC: 3E033NZ Introduction of Analgesics, Hypnotics, Sedatives into Peripheral Vein, Percutaneous Approach (ICD-10-PCS; 2018-08-14)
DX: F10.230 Alcohol dependence with withdrawal, uncomplicated (principal); R00.0 Tachycardia, unspecified; F17.210 Nicotine dependence, cigarettes, uncomplicated; I10 Essential (primary) hypertension; E11.9 Type 2 diabetes mellitus without complications; Z79.4 Long term (current) use of insulin; K86.1 Other chronic pancreatitis; R74.8 Abnormal levels of other serum enzymes
CPT/HCPCS: 36415; 80053; 81003; 81015; 82550; 83690; 83735; 84100; 84484; 85025; 87086; 93005; 93010; 96365; 96366; 96375; 96376; 99284-25; J7030